=== PATIENT | female | born 1980 | race Two or more races ===

== ENCOUNTER 2016-12-17 11:07 | Outpatient (CLI) ==
[2016-04-23 09:37] VITALS: BMI 36.1
[2016-12-17 13:56] LABS: FLU INTERNAL QC INTERNAL QC VALID; RAPID FLU A NEGATIVE (NEGATIVE); RAPID FLU B NEGATIVE (NEGATIVE)
[2016-12-17 14:42] LABS: BASOPHILS # (AUTO) 0.1 K/uL (0-0.2); BASOPHILS % (AUTO) 0.7 % (0.0-3.0); EOSINOPHILS # (AUTO) 0.1 K/ul (0.0-0.7); EOSINOPHILS % (AUTO) 1.2 % (0.0-7.0); HEMATOCRIT 42.3 % (37.0-47.0); IMMATURE GRANULOCYTE % (AUTO) 0.3 % (0.0-5.0); LYMPHOCYTES # (AUTO) 3.3 K/uL (0.60-3.4); LYMPHOCYTES % (AUTO) 32.2 (10.0-50.0); MEAN CORPUSCULAR HEMOGLOBIN 27.7 pg (27.0-31.0); MEAN CORPUSCULAR HGB CONC 33.1 (31.8-35.4); MEAN CORPUSCULAR VOLUME 83.8 fl (81.0-99.0); MONOCYTES # (AUTO) 0.5 K/uL (0.4-2.0); MONOCYTES % (AUTO) 4.6 (0-10); NEUTROPHILS # (AUTO) 6.2 K/ul (2.0-6.9); PLATELET COUNT 331 10^3/uL (140-440); RED BLOOD COUNT 5.05 10^6/ul (4.20-5.40); WHITE BLOOD COUNT 10.12 K/ul (4.6-10.2)
[2016-12-17 14:46] LABS: ALBUMIN/GLOBULIN RATIO 0.89; ANION GAP 15.7; BILIRUBIN,TOTAL 0.4 mg/dL (0.00-1.20); BUN/CREATININE RATIO 14.49; CALCIUM 9.6 mg/dL (8.2-10.2); CHOL/HDL RATIO 5.5 (4.5-5.5); CREATININE 0.69 mg/dL (0.60-1.30); POTASSIUM 3.7 mmol/L (3.5-5.10); TOTAL PROTEIN 8.5 g/dL (6.4-8.2)
== END 2016-12-17 11:08 | disposition home or self-care (01) ==
LOC: LAB 11:07
PROVIDERS: ATTEND Nurse Practitioner Family
DX: J02.9 Acute pharyngitis, unspecified (principal); R50.9 Fever, unspecified
CPT/HCPCS: 36415; 80053; 80061; 85025; 87651; 87804; 87880

== ENCOUNTER 2017-08-16 16:30 | Outpatient (CLI) ==
[2016-04-23 09:37] VITALS: BMI 36.1
== END 2017-08-16 16:31 | disposition home or self-care (01) ==
LOC: LAB 16:30
PROVIDERS: ATTEND Emergency Medicine
DX: J02.9 Acute pharyngitis, unspecified (principal)
CPT/HCPCS: 87651; 87880

== ENCOUNTER 2018-01-01 22:35 | Emergency (ER) ==
[2018-01-01 22:44] VITALS: BP 127/89; TEMP 99.2; BMI 37.8
--- NOTE | 2018-01-01 23:00 | ED.PDOC ---
General ED Provider: Dr. HAILE THOMSON Chief Complaint: Sore Throat Stated Complaint: 3 days history of Sore throat, Runny nose, Dry cough. Time Seen by Physician: 22:58 Mode of Arrival: Walk-In Information Source: Patient Exam Limitations: No limitations Primary Care Provider: [facility] Nursing and Triage Documentation Reviewed and Agree: Yes Reviewed sepsis parameters & appropriate labs ordered?: Yes System Inflammatory Response Syndrome: Not Applicable Sepsis Protocol: For patient's 13 years and over: Temp is 96.8 and below OR 101 and greater Pulse >90 BPM Resp >20/minute Acutely Altered Mental Status Are patient's symptoms suggestive of a new infection, such as: -Pneumonia -Skin, Soft Tissue -Endocarditis -UTI -Bone, Joint Infection -Implantable Device -Acute Abdominal Infection -Wound Infection -Meningitis -Blood Stream Catheter Infection -Unknown System Inflammatory Response Syndrome: Not Applicable Review of Systems - Review Of Systems Constitutional: Reports: Fever Eyes: Reports: No symptoms Ears, Nose, Mouth, Throat: Reports: Throat pain Respiratory: Reports: No symptoms Cardiac: Reports: No symptoms GI: Reports: No symptoms : Reports: No symptoms Musculoskeletal: Reports: No symptoms Skin: Reports: No symptoms Neurological: Reports: No symptoms Endocrine: Reports: No symptoms Hematologic/Lymphatic: Reports: No symptoms All Other Systems: Reviewed and Negative Past Medical History - Past Medical History Previously Healthy: Yes Endocrine: Reports: None Cardiovascular: Reports: None Respiratory: Reports: None Hematological: Reports: None Gastrointestinal: Reports: Other (marked diarrheal diseaase 1 month ago now controlled unless eats particularly late) Genitourinary: Reports: None Neuro/Psych: Reports: None Musculoskeletal: Reports: None Cancer: Reports: None Last Menstrual Period: 3 days ago Other Pertinent Past Medical History: last 7 years ago, initially indicates reason for no rece - Surgical History General Surgical History: Reports: None - Family History Family History: Reports: Diabetes (mother IIDM with dialysis), Cancer (father lung) - Social History Smoking Status: Never smoker Hx Substance Use: No Alcohol Screening: None - Immunizations Tetanus Shot up to Date: Yes Physical Exam - Physical Exam Appearance: Ill-appearing Ill-appearing: Mild Pain Distress: Mild Eyes: RAMONITA, EOMI, Conjunctiva clear ENT: Ears normal, Nose normal, Oropharynx normal Neck: Supple Respiratory: Airway patent, Breath sounds clear, Breath sounds equal, Respirations nonlabored Cardiovascular: RRR, Pulses normal, No rub, No murmur GI/: Soft, Nontender, No masses, Bowel sounds normal, No Organomegaly Musculoskeletal: Normal strength, ROM intact, No edema, No calf tenderness Skin: Warm, Dry, Normal color Neurological: Sensation intact, Motor intact, Reflexes intact, Cranial nerves intact, Alert, Oriented Psychiatric: Affect appropriate, Mood appropriate Critical Care Note - Critical Care Note Total Time (mins): 0 Course - Course Orders, Labs, Meds: Orders Category Date Time Status FLU A/B MOLECULAR Stat LAB 01/01/18 22:45 Uncollected MOLECULAR GROUP A STREP Stat LAB 01/01/18 22:45 Uncollected Vital Signs: Temp Pulse Resp BP Pulse Ox 01/01/18 22:36 99.2 F 86 18 127/89 98 Departure - Departure Time of Disposition: 23:29 Disposition: HOME SELF-CARE Discharge Problem: Influenza B Instructions: Influenza (ED) Condition: Fair Pt referred to PMD for follow-up: Yes IPMP verified?: No Additional Instructions: Push fluids Follow up with PCP in 2 days Alternate Tylenol with Motrin as needed for fever or pain Prescriptions: Oseltamivir Phosphate [Tamiflu] 75 mg PO Q12HR #10 capsule Allergies/Adverse Reactions: Allergies No Known Allergies Allergy (Verified 01/01/18 22:44) Home Medications: Ambulatory Orders Oseltamivir Phosphate [Tamiflu] 75 mg PO Q12HR #10 capsule 01/01/18
[2018-01-01] MEDS ORDERED: TAMIFLU PO STA (23:28)
== END 2018-01-01 23:36 | disposition home or self-care (01) ==
LOC: ED 22:35
DX: J10.1 Influenza due to other identified influenza virus with other respiratory manifestations (principal)
CPT/HCPCS: 87502; 87651; 99283

== ENCOUNTER 2018-05-08 09:18 | Outpatient (CLI) ==
--- NOTE | 2018-05-08 10:13 | DI ---
EXAM: Three views of the left foot HISTORY: Left foot pain with no injury. COMPARISON: None FINDINGS: There is no cortical irregularity or displaced fracture. There is no lytic or blastic lesi on. There is no significant degenerative change. There are no erosions identified. The arch is marquise ntained. Small plantar spur is present. IMPRESSION: No acute osseous abnormality or displaced fracture.
--- NOTE | 2018-05-08 10:20 | DI ---
EXAM: Left knee four views HISTORY: Pain in left knee COMPARISON: None FINDINGS: The bones are normal. The medial, lateral, and patellofemoral compartments are normal in h eight. No joint effusion. IMPERSSION: Normal examination.
--- NOTE | 2018-05-08 10:26 | DI ---
EXAM: Right knee four views HISTORY: Pain in right knee COMPARISON: None FINDINGS: The bones are normal. The medial, lateral, and patellofemoral compartments are normal in h eight. No joint effusion. IMPERSSION: Normal examination.
== END 2018-05-08 09:19 | disposition home or self-care (01) ==
LOC: FCC-LAB 09:18
PROVIDERS: ATTEND Nurse Practitioner Family
DX: E75.6 Lipid storage disorder, unspecified (principal); E66.9 Obesity, unspecified; M79.672 Pain in left foot; M25.561 Pain in right knee; M25.562 Pain in left knee
CPT/HCPCS: 36415; 80053; 80061; 84439; 84443; 85025

== ENCOUNTER 2018-05-11 08:50 | Outpatient (CLI) ==
--- NOTE | 2018-05-12 08:51 | MAMMO ---
EXAM: Digital screening mammogram with tomosynthesis HISTORY: Screening COMPARISON: None FINDINGS: Digital MLO and CC views of the right and left breast were performed. Tomosynthesis was p erformed. Computer aided detection was utilized. The breast tissue is heterogeneously dense, which could obscure small masses. There is no evidence for mass, asymmetry, distortion, or suspicious calc ifications in either breast. IMPRESSION: 1. No evidence of malignancy in the right or left breast. 2. Annual screening mammogram is recommended in one year. BIRADS category 1, negative examination
== END 2018-05-11 08:51 | disposition home or self-care (01) ==
LOC: RAD 08:50
PROVIDERS: ATTEND Nurse Practitioner Family
DX: Z12.31 Encounter for screening mammogram for malignant neoplasm of breast (principal)
CPT/HCPCS: 77067

== ENCOUNTER 2019-04-11 12:11 | Outpatient (CLI) | END 2019-04-11 12:12 | disposition home or self-care (01) | LOC: RHC-LAB 12:11 → FCC-LAB 12:12 | PROVIDERS: ATTEND Family Medicine | DX: Z01.419 Encounter for gynecological examination (general) (routine) without abnormal findings (principal); E78.5 Hyperlipidemia, unspecified | CPT/HCPCS: 36415; 80053; 80061; 84443; 85025 ==